=== PATIENT | male | born 1960 | race African-American/Black ===

== ENCOUNTER 2017-11-24 05:58 | Emergency (ER) | payer SELFPAY ==
[2017-11-24 07:08] LABS: Bicarbonate 24 mEq/L (21-31); Glucose Level 109 mg/dL (65-120); Potassium 3.4 mEq/L (3.6-5.0); Sodium Level 139 mEq/L (135-145)
[2017-11-24 07:14] LABS: ALT/SGPT 9 IU/L (10-60); AST/SGOT 19 IU/L (10-42); Albumin 3.7 g/dL (3.2-5.5); Alkaline Phosphatase 108 IU/L (42-121); BUN Blood Urea Nitrogen 6 mg/dL (6-20); Bilirubin Direct 0.1 mg/dL (0-0.2); Bilirubin Total 0.3 mg/dL (0.3-1.2); Protein, Total 7.3 g/dL (6.0-8.3)
[2017-11-24 07:31] LABS: Hematocrit 28.5 % (39.6-49.0); MCH 21.1 pg (27.0-35.0); MCV 70.4 fL (80-100); MPV 7.8 fL (7.6-11.3); RBC Red Blood Cell Count 4.04 M/uL (4.33-5.43)
[2017-11-24 07:41] LABS: Platelet Estimate ADEQ
[2017-11-24 07:42] LABS: Anisocytosis 2+; Blood Morphology Comment NOTED (NOT SEEN); Hypochromasia 1+; Ovalocytes SLIGHT; Platelets, Giant FEW
--- NOTE | 2017-11-24 08:03 | RAD REPORT ---
EXAM DESCRIPTION: CT - Abdomen Pelvis W Contrast - 11/24/2017 7:40 am CLINICAL HISTORY: Abdominal pain. Hematochezia COMPARISON: None. TECHNIQUE: Computed axial tomography of the abdomen and pelvis was obtained. 100 cc Isovue-300 is ad ministered intravenously. Oral contrast was given. All CT scans are performed using dose optimization technique as appropriate and may include automated exposure control or mA/KV adjustment according to patient size. FINDINGS: Liver contains many hypo lesions which vary in size from a few millimeters to 4.7 centimeters. The po rtal vein is patent. The liver is enlarged. Spleen, pancreas, adrenals and kidneys appear unremarkable. Small left renal cyst is present. Multiple gallstones are seen without gallbladder wall thickening. A 6 centimeter mass is present within the distal sigmoid colon. Surrounding lymphadenopathy is presen t. The appendix is normal caliber. IMPRESSION: A 6 centimeter mass within the distal sigmoid colon consistent with neoplasm. Adjacent l ymphadenopathy is present. Hepatic lesions likely indicate metastases
--- NOTE | 2017-11-24 09:21 | EDPHYS ---
Physician Documentation [facility] Name: Bob Armendariz Age: 57 yrs Sex: Male : 1960 Arrival Date: 11/24/2017 Time: 06:03 Bed 16 Private MD: ED Physician Roque Vigil HPI: 11/24 06:54 This 57 yrs old Black Male presents to ER via Ambulatory with complaints of Rectal jr8 Bleeding. 06:54 The patient presents to the emergency department with bleeding from the rectum/anus, jr8 that is mild. Onset: The symptoms/episode began/occurred acutely, 1 week(s) ago. Context: the patient has no known special context relating to the rectal area complaint(s). Modifying factors: The symptoms are alleviated by nothing, The symptoms are aggravated by nothing. Associate signs and symptoms: The patient has no apparent associated signs or symptoms. The patient has not experienced similar symptoms in the past. The patient has not recently seen a physician. Painless rectal bleeding seen in bowel movements per patient for one week. Denies any other s/s . Historical: - Allergies: 06:15 No Known Allergies; ao - Home Meds: 06:15 Lisinopril Oral [Active]; Metoprolol Tartrate Oral [Active]; Nifedipine Oral [Active]; ao - PMHx: 06:15 Hypertension; ao - PSHx: 06:15 None; ao - Immunization history:: Adult Immunizations unknown. - Social history:: Smoking status: Patient uses tobacco products, smokes one-half pack cigarettes per day, Patient uses alcohol, occasionally. Patient/guardian denies using street drugs. ROS: 06:54 Eyes: Negative for injury, pain, redness, and discharge, ENT: Negative for injury, jr8 pain, and discharge, Neck: Negative for injury, pain, and swelling, Cardiovascular: Negative for chest pain, palpitations, and edema, Respiratory: Negative for shortness of breath, cough, wheezing, and pleuritic chest pain, Back: Negative for injury and pain, MS/Extremity: Negative for injury and deformity, Skin: Negative for injury, rash, and discoloration, Neuro: Negative for headache, weakness, numbness, tingling, and seizure. 06:54 Abdomen/GI: Positive for rectal bleeding, Negative for abdominal pain, nausea, vomiting, and diarrhea, constipation, abdominal cramps, abdominal distension, anorexia, dysphagia, hematemesis, black/tarry stool, rectal pain, bowel incontinence, flatulence. Exam: 06:54 Eyes: Pupils equal round and reactive to light, extra-ocular motions intact. Lids and jr8 lashes normal. Conjunctiva and sclera are non-icteric and not injected. Cornea within normal limits. Periorbital areas with no swelling, redness, or edema. ENT: Nares patent. No nasal discharge, no septal abnormalities noted. Tympanic membranes are normal and external auditory canals are clear. Oropharynx with no redness, swelling, or masses, exudates, or evidence of obstruction, uvula midline. Mucous membranes moist. Neck: Trachea midline, no thyromegaly or masses palpated, and no cervical lymphadenopathy. Supple, full range of motion without nuchal rigidity, or vertebral point tenderness. No Meningismus. Cardiovascular: Regular rate and rhythm with a normal S1 and S2. No gallops, murmurs, or rubs. Normal PMI, no JVD. No pulse deficits. Respiratory: Lungs have equal breath sounds bilaterally, clear to auscultation and percussion. No rales, rhonchi or wheezes noted. No increased work of breathing, no retractions or nasal flaring. Back: No spinal tenderness. No costovertebral tenderness. Full range of motion. Skin: Warm, dry with normal turgor. Normal color with no rashes, no lesions, and no evidence of cellulitis. MS/ Extremity: Pulses equal, no cyanosis. Neurovascular intact. Full, normal range of motion. Neuro: Awake and alert, GCS 15, oriented to person, place, time, and situation. Cranial nerves II-XII grossly intact. Motor strength 5/5 in all extremities. Sensory grossly intact. Cerebellar exam normal. Normal gait. 06:54 Abdomen/GI: Inspection: abdomen appears normal, Bowel sounds: active, all quadrants, Palpation: abdomen is soft and non-tender, in all quadrants, mass, is not appreciated, rebound tenderness, is not appreciated, voluntary guarding, is elicited in all quadrants, involuntary guarding, is not appreciated, no appreciated organomegaly, Rectal exam: Prostate: normal, rectal tone normal, Stool: brown, guaiac positive, hemorrhoid(s), external, without bleeding, without inflammation, without thrombosis, without pain, mass, is not appreciated, swelling, is not appreciated, tenderness, is not appreciated, the exam is chaperoned by the nurse, Indicators: McBurney's point is not tender, Harrington's sign is negative, Rovsing's sign is negative, Liver: no appreciated palpable abnormalities, tenderness, is not appreciated. Vital Signs: 06:13 BP 121 / 91; Pulse 84; Resp 14; Temp 100.2(O); Pulse Ox 100% on R/A; Weight 84.82 kg ao (R); Height 6 ft. 1 in. (185.42 cm); Pain 0/10; 07:00 BP 120 / 89; Pulse 66; Resp 18; Pulse Ox 100% on R/A; hj 08:00 BP 124 / 90; Pulse 65; Resp 18; Pulse Ox 100% on R/A; hj 08:51 BP 125 / 87; Pulse 67; Resp 18; Pulse Ox 100% on R/A; hj 06:13 Body Mass Index 24.67 (84.82 kg, 185.42 cm) ao MDM: 06:11 Patient medically screened. jr8 08:23 ED course: Called Dr. Colin MARTINEZ and will not see patient because he is not civil transportation engineer today. jr8 Left message for Dr. Jared MARTINEZ to call back to see if he will see patient . 09:16 Data reviewed: vital signs, nurses notes, lab test result(s), radiologic studies, CT jr8 scan, and as a result, I will admit patient. Data interpreted: Pulse oximetry: on room air is 100 %. Interpretation: normal. Counseling: I had a detailed discussion with the patient and/or guardian regarding: the historical points, exam findings, and any diagnostic results supporting the discharge/admit diagnosis, lab results, radiology results, the need to transfer to another facility, for higher level of care, [facility] does not immediately have the required specialist. ED course: [facility] both GI and Medicine accepted patient for further evaluation of colon mass with anemia . 11/24 06:22 Order name: Basic Metabolic Panel; Complete Time: 07:24 jr8 11/24 06:22 Order name: CBC with Diff; Complete Time: 07:47 8 11/24 06:22 Order name: Creatinine for Radiology; Complete Time: 07:24 8 11/24 06:22 Order name: Hepatic Function; Complete Time: 07:24 jr8 11/24 07:33 Order name: Manual Differential; Complete Time: 07:47 EDMS 11/24 08:50 Order name: TS; Complete Time: 10:16 [facility] 11/24 06:22 Order name: IV Saline Lock; Complete Time: 06:35 [facility] 11/24 06:22 Order name: Labs collected and sent; Complete Time: 06:35 [facility] 11/24 07:25 Order name: CT Abd/Pelvis - W/Contrast; Complete Time: 08:06 [facility] 11/24 09:42 Order name: ABO/RH no charge; Complete Time: 09:44 EDMS Administered Medications: No medications were administered Point of Care Testing: Guaiac: 06:25 Stool Guaiac: Positive; Stool Hemoccult Control: Pass; ao Disposition: 14:27 Co-signature as Attending Physician, Roque Vigil MD I agree with the assessment and marlen plan of care. Disposition: 11/24/17 09:21 Transfer ordered to [facility]. Diagnosis are Malignant neoplasm of sigmoid colon, Gastrointestinal hemorrhage, unspecified - Lower GI, Acute Anemia . - Reason for transfer: Higher level of care. - Accepting physician is [facility]. - Condition is Stable. - Problem is new. - Symptoms are unchanged. Signatures: Dispatcher [employer] EDGeo Bonilla, Roque Ortiz RN, MD MD cha Roszak, Josh, PA PA jr8 Orville Castano RN RN ao
--- NOTE | 2017-11-24 09:21 | ER ---
Nurse's Notes [facility] Name: Bob Armendariz Age: 57 yrs Sex: Male : 1960 Arrival Date: 11/24/2017 Time: 06:03 Bed 16 Private MD: Diagnosis: Malignant neoplasm of sigmoid colon;Gastrointestinal hemorrhage, unspecified-Lower GI;Acute Anemia Presentation: 11/24 06:11 Presenting complaint: Patient states: "I have notice that there is blood in my stool ao and I don't like it." Patient reports bloody stool for a week. Patient denies nausea, vomiting and abdominal pain. Transition of care: patient was not received from another setting of care. Onset of symptoms is unknown. Initial Sepsis Screen: Does the patient meet any 2 criteria? No. Patient's initial sepsis screen is negative. Does the patient have a suspected source of infection? No. Patient's initial sepsis screen is negative. Care prior to arrival: None. 06:11 Method Of Arrival: Ambulatory ao 06:11 Acuity: SUSANNE 3 ao Triage Assessment: 06:16 General: Appears in no apparent distress. comfortable, Behavior is calm, cooperative, ao appropriate for age. Pain: Denies pain. EENT: No signs and/or symptoms were reported regarding the EENT system. Neuro: Level of Consciousness is awake, alert, obeys commands, Oriented to person, place, time, situation, Appropriate for age Moves all extremities. Speech is normal, Facial symmetry appears normal. Cardiovascular: Capillary refill < 3 seconds Patient's skin is warm and dry. Respiratory: Reports shortness of breath at rest Onset: The symptoms/episode began/occurred suddenly, the patient has moderate shortness of breath. GI: Abdomen is non-distended. GI: Reports bloody stool. : No signs and/or symptoms were reported regarding the genitourinary system. Derm: Skin is pink, warm \\T\\ dry. Skin temperature is warm. Musculoskeletal: No signs and/or symptoms reported regarding the musculoskeletal system. Range of motion: intact in all extremities. Historical: - Allergies: 06:15 No Known Allergies; ao - Home Meds: 06:15 Lisinopril Oral [Active]; Metoprolol Tartrate Oral [Active]; Nifedipine Oral [Active]; ao - PMHx: 06:15 Hypertension; ao - PSHx: 06:15 None; ao - Immunization history:: Adult Immunizations unknown. - Social history:: Smoking status: Patient uses tobacco products, smokes one-half pack cigarettes per day, Patient uses alcohol, occasionally. Patient/guardian denies using street drugs. Screenin:21 Abuse screen: Denies threats or abuse. Denies injuries from another. Nutritional ao screening: No deficits noted. Tuberculosis screening: No symptoms or risk factors identified. Fall Risk None identified. Assessment: 06:15 General: See triage assessment. ao 06:36 Cardiovascular: Rhythm is regular. Respiratory: Airway is patent Respiratory effort is ao Breath sounds are clear bilaterally. 07:30 General: Appears in no apparent distress. uncomfortable, Behavior is calm, cooperative, hj appropriate for age. Pain: Denies pain. Neuro: Level of Consciousness is awake, alert, obeys commands, Oriented to person, place, time, situation, Appropriate for age. Cardiovascular: Capillary refill < 3 seconds Patient's skin is warm and dry. Respiratory: Airway is patent Respiratory effort is even, unlabored, Respiratory pattern is regular, symmetrical. GI: Reports rectal bleeding. : No signs and/or symptoms were reported regarding the genitourinary system. EENT: No signs and/or symptoms were reported regarding the EENT system. Derm: No signs and/or symptoms reported regarding the dermatologic system. Musculoskeletal: No signs and/or symptoms reported regarding the musculoskeletal system. 08:47 Reassessment: Patient and/or family updated on plan of care and expected duration. Pain hj level reassessed. Patient is alert, oriented x 3, equal unlabored respirations, skin warm/dry/pink. provider in room for POC;. Vital Signs: 06:13 BP 121 / 91; Pulse 84; Resp 14; Temp 100.2(O); Pulse Ox 100% on R/A; Weight 84.82 kg ao (R); Height 6 ft. 1 in. (185.42 cm); Pain 0/10; 07:00 BP 120 / 89; Pulse 66; Resp 18; Pulse Ox 100% on R/A; hj 08:00 BP 124 / 90; Pulse 65; Resp 18; Pulse Ox 100% on R/A; hj 08:51 BP 125 / 87; Pulse 67; Resp 18; Pulse Ox 100% on R/A; hj 06:13 Body Mass Index 24.67 (84.82 kg, 185.42 cm) ao ED Course: 06:03 Patient arrived in ED. do 06:10 Orville Castano, RN is Primary Nurse. ao 06:11 Esvin Alvraez PA is PHCP. jr8 06:11 Roque Vigil MD is Attending Physician. jr8 06:13 Triage completed. ao 06:16 Arm band placed on right wrist. Patient placed in an exam room, on a stretcher, in a ao wheelchair, on pricing specialist, Patient notified of wait time. 06:22 Inserted saline lock: 20 gauge in right antecubital area, using aseptic technique. ao Blood collected. 06:36 Patient has correct armband on for positive identification. Pulse ox on. NIBP on. ao 07:07 Report given to GRIS Singer. ao 07:38 CT completed. Patient tolerated procedure well. Patient moved to CT via wheelchair. sj Patient moved back from CT. 07:41 CT Abd/Pelvis - W/Contrast In Process Unspecified. EDMS 08:57 \\[id number] initiated transfer with [facility] spoke with Alexia warehouse coordinator. eb 09:32 \\[id number] PENNY Alvarez spoke with Dr. Keysha Rodriguez about transfer. eb 09:34 \\[id number] administrative approval given by [facility] from Alexia Perdue Rn Trans eb Coord. pt to go to [address] RM [id number]/ report to be called to the transfer center to [phone]. 10:05 Primary Nurse role handed off by Orville Castano RN sg 10:05 Geo Meier, JENELLE is Primary Nurse. sg 10:40 No provider procedures requiring assistance completed. Patient transferred, IV remains sg in place. intact, No redness/swelling at site. Administered Medications: No medications were administered Point of Care Testing: Guaiac: 06:25 Stool Guaiac: Positive; Stool Hemoccult Control: Pass; ao Outcome: 09:21 ER care complete, transfer ordered by . jr8 10:40 Transferred by ground EMS to [facility], Transfer form completed. sg 10:40 Condition: good 10:40 Instructed on the need for transfer, safety practices, Demonstrated understanding of instructions. 10:41 Patient left the ED. sg Signatures: Dispatcher [employer] EDMS Geo Meier, RN Leola Mejía Josh, PA PA jr8 Harris oLcke RN RN hj Ortiz, Alex, RN RN ao Ogletree, Danielle do Botello, Elizabeth eb
[2017-11-24 10:57] VITALS: TEMP 100.2; O2SAT 100
[2017-11-24 11:00] VITALS: BP 125/87
== END 2017-11-24 10:41 | disposition short-term general hospital (02) ==
LOC: ER 05:58
DX: C18.7 Malignant neoplasm of sigmoid colon (principal); D64.9 Anemia, unspecified; K92.2 Gastrointestinal hemorrhage, unspecified; F17.210 Nicotine dependence, cigarettes, uncomplicated; I10 Essential (primary) hypertension
CPT/HCPCS: 36415; 74177; 80048; 80076; 85025; 86850; 86900; 86901; 99285; Q9967

== ENCOUNTER 2018-03-11 11:15 | Emergency (ER) | payer OTHER, SELFPAY ==
--- OUTSIDE RECORDS SUMMARY | 2018-03-11 11:17 | XMS REPORT | Clinical Summary ---
:1960 Author Organization [facility] Address [address] [place] [address] Phone Care Team Providers Name Role Phone Unavailable Primary Care Provider Unavailable Allergies No Known Allergies Current Medications Prescription Sig. Disp. Refills Start Date End Date Status metoprolol Take 25 mg by Active (LOPRESSOR) 25 MG mouth 2 (two) tablet times daily. ferrous sulfate 325 Take 325 mg Active (65 FE) MG tablet by mouth daily with breakfast. lisinopril Take 20 mg by 11/30/2017 Discontinued (PRINIVIL,ZESTRIL) 20 mouth daily. MG tablet NIFEdipine Take 20 mg by 11/30/2017 Discontinued (PROCARDIA) 20 MG mouth 3 capsule (three) times daily. polyethylene glycol Take 17 g by 14 each 0 11/30/2017 11/30/2017 Discontinued (GLYCOLAX) 17 gram mouth 2 (two) packet times daily for 3 days. polyethylene glycol Take 17 g by 60 each 5 11/30/2017 12/30/2017 (GLYCOLAX) 17 gram mouth 2 (two) packet times daily for 30 days. Active Problems Problem Noted Date Adenocarcinoma, colon (HCC) 11/27/2017 Blood loss anemia 11/27/2017 Liver metastases (HCC) 11/27/2017 Microcytic anemia 11/24/2017 Liver lesion 11/24/2017 Hypertension, essential 11/24/2017 Diabetes mellitus type 2, diet-controlled (HCC) 11/24/2017 Tobacco abuse 11/24/2017 Resolved Problems Problem Noted Date Resolved Date Colonic mass 11/24/2017 11/27/2017 Encounters Date Type Specialty Care Team Description 11/29/2017 Procedure Pass Gastroenterology 11/29/2017 Surgery Gastroenterology Paul Parsons SIGMOIDOSCOPY Loco 11/28/2017 Anesthesia Event Gastroenterology Mile Walsh MD 11/28/2017 Procedure Pass Gastroenterology 11/27/2017 Anesthesia Event Gastroenterology Pedro Field MD 11/25/2017 Anesthesia Event Gastroenterology Bj Hackett CRNA 11/25/2017 Procedure Pass Gastroenterology 11/25/2017 Surgery Gastroenterology Prieto Dela Cruz COLONOSCOPY,BIOPSY MD Essence 11/24/2017 - Hospital Encounter Cardiology Shiekh [facility], Colonic mass; Diabetes 11/30/2017 Rhoda Marie MD mellitus type 2, Chacho Hairston, diet-controlled MD (HCC);Hypertension, Payton, Zo essential;Liver MD Silverio lesion;Microcytic anemia;Tobacco abuse;Adenocarcinoma, colon (HCC);Blood loss anemia;Liver metastases (HCC) after 03/10/2017 Social History Tobacco Use Types Packs/Day Years Used Date Current Some Day Smoker 0.25 40 Smokeless Tobacco: Never Used Alcohol Use Drinks/Week oz/Week Comments Yes Occasionally Sex Assigned at Date Recorded Not on file Last Filed Vital Signs Vital Sign Reading Time Taken Blood Pressure 114/78 11/30/2017 11:25 AM CDT Pulse 69 11/30/2017 11:25 AM CDT Temperature 36.8 C (98.3 F) 11/30/2017 11:25 AM CDT Respiratory Rate 15 11/30/2017 11:25 AM CDT Oxygen Saturation 98% 11/30/2017 11:25 AM CDT Inhaled Oxygen Concentration - - Weight 83.3 kg (183 lb 9.6 oz) 11/24/2017 12:12 PM CDT Height 185.4 cm (6' 1") 11/24/2017 12:12 PM CDT Body Mass Index 24.22 11/24/2017 12:12 PM CDT Plan of Treatment Not on file Implants Implanted Type Area Can Vacuum Tester Device Expiration Model / Identifier Date Serial / Lot Stent Colonic [id number] - [id number] Stents-Pe [employer] 2018 6504 / Implanted: Qty: 1 on 11/29/2017 by Paul Parsons / [id number] Stent Colonic [id number] - [id number] Stents[employer]Pe [employer] 2018 6506 / Implanted: Qty: 1 on 11/29/2017 by Issa Paul Loco case / [id number] Procedures Procedure Name Priority Date/Time Associated Diagnosis Comments PROCEDURE W/ C-ARM 11/29/2017 1:00 PM Colonic obstruction (HCC) CDT SIGMOIDOSCOPY 11/29/2017 1:00 PM Colonic obstruction (HCC) CDT COLONOSCOPY,SUBMUCOSAL 11/25/2017 9:46 AM Gastrointestinal INJECTION CDT hemorrhage, unspecified gastrointestinal hemorrhage type COLONOSCOPY,BIOPSY 11/25/2017 9:46 AM Gastrointestinal CDT hemorrhage, unspecified gastrointestinal hemorrhage type after 03/10/2017 Results RHYTHM STRIP - SCAN (12/04/2017 1:21 PM)REPORT OF PROCEDURE - ENDOSCOPY URL ( 7:38 AM)Only the most recent of2 resultswithin the time period is included.Hemoglobin and hematocrit (11/30/2017 4:54 AM)Only the most recent of3 resultswithin the time period is included. Component Value Ref Range Hemoglobin 8.5 (L) 13.7 - 17.5 GM/DL Hematocrit 28.9 (L) 40.1 - 51.0 % Specimen Performing Laboratory Blood [address] [address] Carcinoembryonic Antigen (CEA) (11/30/2017 4:54 AM) Component Value Ref Range CEA, SERUM 109.0 (H) 0.0 - 5.0 ng/mL Specimen Performing Laboratory Blood [address] [address] [address] radio technician in or 30 minute increments (11/29/2017 5:00 PM) Specimen Performing Laboratory GE RIS Narrative FINAL REPORT Fluoroscopy 1 view intraoperative 11/29/2017 5:32 PM CLINICAL HISTORY: Instrument localization COMPARISON: None available IMPRESSION: Please correlate imaging report findings with the procedure note prepared by Dr. Parsons, as an intra-procedure imaging consultation was not requested. Reported fluoroscopy time: 2.8 minutes. Signed: Kong Looney MD Report Verified Date/Time:11/29/2017 17:32:48 Reading Location: [facility] Radiology Reading Room Procedure Note Interface, External Ris In - 11/29/2017 5:35 PM CDT FINAL REPORT Fluoroscopy 1 view intraoperative 11/29/2017 5:32 PM CLINICAL HISTORY: Instrument localization COMPARISON: None available IMPRESSION: Please correlate imaging report findings with the procedure note prepared by Dr. Parsons, as an intra-procedure imaging consultation was not requested. Reported fluoroscopy time: 2.8 minutes. Signed: Kong Looney MD Report Verified Date/Time: 11/29/2017 17:32:48 Reading Location: [facility] Radiology Reading Room SFUSION SERVICE REPORT - SCAN (11/27/2017 5:40 PM)CBC (Hemogram only) ( 5:05 AM)Only the most recent of3 resultswithin the time period is included. Component Value Ref Range WBC 5.3 3.5 - 10.5 K/L RBC 3.70 (L) 4.63 - 6.08 M/L Hemoglobin 7.5 (L) 13.7 - 17.5 GM/DL Hematocrit 26.4 (L) 40.1 - 51.0 % MCV 71.4 (L) 79.0 - 92.2 fL MCH 20.3 (L) 25.7 - 32.2 pg MCHC 28.4 (L) 32.3 - 36.5 GM/DL RDW 21.2 (H) 11.6 - 14.4 % Platelets 181 150 - 450 K/CU MM MPV 10.4 9.4 - 12.4 fL nRBC 0 0 - 0 /100 WBC Specimen Performing Laboratory Blood [facility] [address] [address] Basic metabolic panel (11/27/2017 5:05 AM)Only the most recent of3 resultswithin the time period is included. Component Value Ref Range Sodium 137 136 - 145 meq/L Potassium 3.7 3.5 - 5.1 meq/L Chloride 105 98 - 107 meq/L CO2 24 22 - 29 meq/L BUN 5 (L) 7 - 21 mg/dL Creatinine 0.66 0.57 - 1.25 mg/dL Glucose 79 70 - 105 mg/dL Calcium 9.1 8.4 - 10.2 mg/dL EGFR 150Comment: ESTIMATED GFR IS NOT ACCURATE mL/min/1.73 sq m CREATININE CLEARANCE IN PREDICTING GLOMERULAR FILTRATION RATE. ESTIMATED GFR IS NOT APPLICABLE FOR DIALYSIS PATIENTS. Specimen Performing Laboratory Blood [facility] [address] [address] [address] chest with IV contrast (11/26/2017 4:47 PM) Specimen Performing Laboratory [place] KARLI Coreas FINAL REPORT CT of the Chest, abdomen and pelvis dated 11/26/2017 Clinical information: Liver protocol, staging CT for CRC evaluate for metastatic disease Comment:Axial images of the chest, abdomen, and pelvis were obtained from thoracic inlet to the pubic symphysis with intravenous contrast. Preintravenous axial images of the abdomen were obtained. This exam was performed according to our departmental dose-optimization program, which includes automated exposure control, adjustment of the mA and/or kV according to patient size and/or use of interactive reconstruction technique. A 1.3 x 1.7 cm enhancing nodule is seen in this method. Heart is normal in size.Great vessels are unremarkable. No adenopathy in the mediastinum or perihilar region. Trachea and mainstem bronchi are patent. A 3 mm nodule is seen in the right upper lobe. A 5 mm nodule is seen in the right mid lobe but. The rest of the lungs are clear. No mass lesion or airspace disease is noted.No interstitial disease or bronchiectasis is present. No pleural effusion or pleural based mass is seen. Liver and spleen are normal in size. Numerous hypodense masses are seen throughout the liver with largest measuring approximately 3.8 x 4.6 cm. Gallbladder is contracted. Multiple small gallstones are present. No biliary dilatation is noted. Pancreas and adrenals are unremarkable. Both kidneys are normal in size and functioning with bilateral excretion. A 1.3 x 1.5 cm cyst is seen in the inferior pole left kidney. The opacified small and large bowel are suboptimally evaluated secondary to lack of GI contrast. Wall thickening is seen in the sigmoid colon. Wall thickening measures approximately 7 cm in length with acute transition. The findings are suspicious for colon cancer. Small bowel is normal in caliber. Appendix is unremarkable. Prominent lymph nodes are seen in the sigmoid mesocolon measuring up to 0.9 x 1.3 cm. Prostate is normal in size. The urinary bladder is minimally distended. Impression: 1. Nonspecific small nodules in the right upper and mid lobe. 2. Numerous hypodense masses in the liver compatible with metastasis. 3. Wall thickening in the sigmoid colon compatible with colon cancer. 4. Cholelithiasis without biliary dilatation. 5. Left renal cyst. 6. Nonspecific lymph nodes in the sigmoid mesocolon. Signed: Brea Pimentel MD Report Verified Date/Time:11/26/2017 17:19:39 Reading Location: [address] Ortho Consult Reading Room Procedure Note Interface, External Ris In - 11/26/2017 5:21 PM CDT FINAL REPORT CT of the Chest, abdomen and pelvis dated 11/26/2017 Clinical information: Liver protocol, staging CT for CRC evaluate for metastatic disease Comment: Axial images of the chest, abdomen, and pelvis were obtained from thoracic inlet to the pubic symphysis with intravenous contrast. Preintravenous axial images of the abdomen were obtained. This exam was performed according to our departmental dose-optimization program, which includes automated exposure control, adjustment of the mA and/or kV according to patient size and/or use of interactive reconstruction technique. A 1.3 x 1.7 cm enhancing nodule is seen in this method. Heart is normal in size. Great vessels are unremarkable. No adenopathy in the mediastinum or perihilar region. Trachea and mainstem bronchi are patent. A 3 mm nodule is seen in the right upper lobe. A 5 mm nodule is seen in the right mid lobe but. The rest of the lungs are clear. No mass lesion or airspace disease is noted. No interstitial disease or bronchiectasis is present. No pleural effusion or pleural based mass is seen. Liver and spleen are normal in size. Numerous hypodense masses are seen throughout the liver with largest measuring approximately 3.8 x 4.6 cm. Gallbladder is contracted. Multiple small gallstones are present. No biliary dilatation is noted. Pancreas and adrenals are unremarkable. Both kidneys are normal in size and functioning with bilateral excretion. A 1.3 x 1.5 cm cyst is seen in the inferior pole left kidney. The opacified small and large bowel are suboptimally evaluated secondary to lack of GI contrast. Wall thickening is seen in the sigmoid colon. Wall thickening measures approximately 7 cm in length with acute transition. The findings are suspicious for colon cancer. Small bowel is normal in caliber. Appendix is unremarkable. Prominent lymph nodes are seen in the sigmoid mesocolon measuring up to 0.9 x 1.3 cm. Prostate is normal in size. The urinary bladder is minimally distended. Impression: 1. Nonspecific small nodules in the right upper and mid lobe. 2. Numerous hypodense masses in the liver compatible with metastasis. 3. Wall thickening in the sigmoid colon compatible with colon cancer. 4. Cholelithiasis without biliary dilatation. 5. Left renal cyst. 6. Nonspecific lymph nodes in the sigmoid mesocolon. Signed: Brea Pimentel MD Report Verified Date/Time: 11/26/2017 17:19:39 Reading Location: [id number] Ortho Consult Reading Room abdomen/pelvis without & with IV contrast (11/26/2017 4:47 PM) Specimen Performing Laboratory [employer] FINAL REPORT CT of the Chest, abdomen and pelvis dated 11/26/2017 Clinical information: Liver protocol, staging CT for CRC evaluate for metastatic disease Comment:Axial images of the chest, abdomen, and pelvis were obtained from thoracic inlet to the pubic symphysis with intravenous contrast. Preintravenous axial images of the abdomen were obtained. This exam was performed according to our departmental dose-optimization program, which includes automated exposure control, adjustment of the mA and/or kV according to patient size and/or use of interactive reconstruction technique. A 1.3 x 1.7 cm enhancing nodule is seen in this method. Heart is normal in size.Great vessels are unremarkable. No adenopathy in the mediastinum or perihilar region. Trachea and mainstem bronchi are patent. A 3 mm nodule is seen in the right upper lobe. A 5 mm nodule is seen in the right mid lobe but. The rest of the lungs are clear. No mass lesion or airspace disease is noted.No interstitial disease or bronchiectasis is present. No pleural effusion or pleural based mass is seen. Liver and spleen are normal in size. Numerous hypodense masses are seen throughout the liver with largest measuring approximately 3.8 x 4.6 cm. Gallbladder is contracted. Multiple small gallstones are present. No biliary dilatation is noted. Pancreas and adrenals are unremarkable. Both kidneys are normal in size and functioning with bilateral excretion. A 1.3 x 1.5 cm cyst is seen in the inferior pole left kidney. The opacified small and large bowel are suboptimally evaluated secondary to lack of GI contrast. Wall thickening is seen in the sigmoid colon. Wall thickening measures approximately 7 cm in length with acute transition. The findings are suspicious for colon cancer. Small bowel is normal in caliber. Appendix is unremarkable. Prominent lymph nodes are seen in the sigmoid mesocolon measuring up to 0.9 x 1.3 cm. Prostate is normal in size. The urinary bladder is minimally distended. Impression: 1. Nonspecific small nodules in the right upper and mid lobe. 2. Numerous hypodense masses in the liver compatible with metastasis. 3. Wall thickening in the sigmoid colon compatible with colon cancer. 4. Cholelithiasis without biliary dilatation. 5. Left renal cyst. 6. Nonspecific lymph nodes in the sigmoid mesocolon. Signed: Brea Pimentel MD Report Verified Date/Time:11/26/2017 17:19:39 Reading Location: [id number] Ortho Consult Reading Room Procedure Note Interface, External Ris In - 11/26/2017 5:21 PM CDT FINAL REPORT CT of the Chest, abdomen and pelvis dated 11/26/2017 Clinical information: Liver protocol, staging CT for CRC evaluate for metastatic disease Comment: Axial images of the chest, abdomen, and pelvis were obtained from thoracic inlet to the pubic symphysis with intravenous contrast. Preintravenous axial images of the abdomen were obtained. This exam was performed according to our departmental dose-optimization program, which includes automated exposure control, adjustment of the mA and/or kV according to patient size and/or use of interactive reconstruction technique. A 1.3 x 1.7 cm enhancing nodule is seen in this method. Heart is normal in size. Great vessels are unremarkable. No adenopathy in the mediastinum or perihilar region. Trachea and mainstem bronchi are patent. A 3 mm nodule is seen in the right upper lobe. A 5 mm nodule is seen in the right mid lobe but. The rest of the lungs are clear. No mass lesion or airspace disease is noted. No interstitial disease or bronchiectasis is present. No pleural effusion or pleural based mass is seen. Liver and spleen are normal in size. Numerous hypodense masses are seen throughout the liver with largest measuring approximately 3.8 x 4.6 cm. Gallbladder is contracted. Multiple small gallstones are present. No biliary dilatation is noted. Pancreas and adrenals are unremarkable. Both kidneys are normal in size and functioning with bilateral excretion. A 1.3 x 1.5 cm cyst is seen in the inferior pole left kidney. The opacified small and large bowel are suboptimally evaluated secondary to lack of GI contrast. Wall thickening is seen in the sigmoid colon. Wall thickening measures approximately 7 cm in length with acute transition. The findings are suspicious for colon cancer. Small bowel is normal in caliber. Appendix is unremarkable. Prominent lymph nodes are seen in the sigmoid mesocolon measuring up to 0.9 x 1.3 cm. Prostate is normal in size. The urinary bladder is minimally distended. Impression: 1. Nonspecific small nodules in the right upper and mid lobe. 2. Numerous hypodense masses in the liver compatible with metastasis. 3. Wall thickening in the sigmoid colon compatible with colon cancer. 4. Cholelithiasis without biliary dilatation. 5. Left renal cyst. 6. Nonspecific lymph nodes in the sigmoid mesocolon. Signed: Brea Pimentel MD Report Verified Date/Time: 11/26/2017 17:19:39 Reading Location: [facility] B[facility] C013X Ortho Consult Reading Room Type and screen, automated (11/26/2017 4:26 AM) Component Value Ref Range ABO/RH AUTOMATED (BEAKER) A POSITIVE Ab Scrn NEGATIVE Specimen Performing Laboratory Blood - Arm, [address] [address] Tissue Exam (11/25/2017 10:25 AM) Component Value Ref Range Case Report Surgical Pathology Report Case: [id number] Authorizing Provider:Prieto Dela Cruz, Collected: 11/25/2017 1025 MD Ordering Location: [address] Received: 11/27/2017 0802 Service Pathologist: Nancy Morrison MD Specimen:Polyp, Colon - Sigmoid, sigmoid mass r/o adenocarcinoma bx DIAGNOSIS COLON, SIGMOID, ENDOSCOPIC BIOPSY: - ADENOCARCINOMA Signing Pathologist Direct Phone Line: [phone] CPT Code(s) 24706 CLINICAL HISTORY GI bleed, rule out adenocarcinoma biopsy SPECIMEN SOURCE Sigmoid colon polyp mass GROSS DESCRIPTION The specimen is received in a formalin-filled container labeled with the patient's information and labeled "sigmoid colon polyp mass" and consists of multiple fragments of dai tissue ranging from less than 0.1 to 0.3 submitted entirely in A1. CG/ew MICROSCOPIC DESCRIPTION PERFORMED Specimen Performing Laboratory Tissue - Polyp, Colon - Sigmoid [address] [address] Iron, TIBC, % sat. (without ferritin) (11/25/2017 4:43 AM) Component Value Ref Range Iron 17 (L) 40 - 160 ug/dL TIBC 405 250 - 450 ug/dL Iron % Saturation 4 (L) 20 - 55 % Specimen Performing Laboratory Blood - Arm, [address] [address] Hemoglobin A1c (11/25/2017 4:43 AM) Component Value Ref Range Hemoglobin A1C 5.9 4.3 - 6.1 % Specimen Performing Laboratory Blood - Arm, [address] [address] Ferritin (11/25/2017 4:43 AM) Component Value Ref Range Ferritin 12 5 - 275 ng/mL Specimen Performing Laboratory Blood - Arm, [address] [address] Hepatic function panel (11/25/2017 4:43 AM) Component Value Ref Range Protein, Total 6.9 6.0 - 8.3 gm/dL Albumin 3.5 3.5 - 5.0 g/dL Total Bilirubin 0.7 0.2 - 1.2 mg/dL Bilirubin, Direct 0.3 0.1 - 0.5 mg/dL Alkaline Phosphatase 105 40 - 150 U/L AST 14 5 - 34 U/L ALT <6 (L) 6 - 55 U/L Specimen Performing Laboratory Blood - Arm, [address] [address] after 03/10/2017
--- OUTSIDE RECORDS SUMMARY | 2018-03-11 11:18 | XMS REPORT ---
:1960 [facility] Address [address] [place] [address] Dr. Jones [address] [place] [id number] Care Team Providers Name Role Phone MIMI LEMUSAmy Unavailable Unavailable Problems This patient has no known problems. Allergies, Adverse Reactions, Alerts This patient has no known allergies or adverse reactions. Medications This patient has no known medications. Results Test Description Test Time Test Comments Text Results Atomic Results Result Comments CARCINOEMBRYONIC ANTIGEN (CEA) 2017-11-30 06:34:00 Test Item Value Reference Range Comments CARCINOEMBRYONIC ANTIGEN (BEAKER) (test nrpg=652) 109.0 ng/mL 0.0-5.0 HEMOGLOBIN AND [id number] 05:52:00 Test Item Value Reference Range Comments HEMOGLOBIN (BEAKER) (test enil=233) 8.5 GM/DL 13.7-17.5 HEMATOCRIT (BEAKER) (test yrlo=651) 28.9 % 40.1-51.0 FL, STATOR CONNECTOR IN OR/30 MINUTE [id number] 17:32:00Intra- Op imagingReason for exam:->sigmoid massFINAL REPORT Fluoroscopy 1 view intraoperative 11/29/2017 5:32 PM CLINICAL HISTORY: Instrument localization COMPARISON: None available IMPRESSION: Please correlate imaging report findings with the procedure note prepared by Dr. Parsons, as an intra- procedure imaging consultation wasnot requested. Reported fluoroscopy time: 2.8 minutes. Signed: Kong Looney Verified Date/Time: 11/29/2017 17:32: 48 [facility] Electronicallysigned by: KONG LOONEY M.D. on 11/29/2017 05:32 PMHEMOGLOBIN AND [id number] 05:39:00 Test Item Value Reference Range Comments HEMOGLOBIN (BEAKER) (test fbpi=422) 8.2 GM/DL 13.7-17.5 HEMATOCRIT (BEAKER) (test oylb=063) 28.1 % 40.1-51.0 HEMOGLOBIN AND [id number] 13:06:00 Test Item Value Reference Range Comments HEMOGLOBIN (BEAKER) (test qupx=292) 8.2 GM/DL 13.7-17.5 HEMATOCRIT (BEAKER) (test wwut=514) 28.9 % 40.1-51.0 TISSUE [id number] 16:15:00Surgical Pathology Report Case: [id number] Authorizing Provider: Prieto Dela Cruz, Collected: 11/25/2017 1025 MD OrderingLocation: [address] Received: 2017 0802 Service Pathologist: Nancy Morrison MD Specimen: Polyp , Colon - Sigmoid, sigmoid mass r/o adenocarcinoma bx COLON, SIGMOID, ENDOSCOPIC BIOPSY: - ADENOCARCINOMA Signing Pathologist Direct Phone Line: [phone] signed by Nancy Morrison MD on 11/27/2017 at 4:15 [id number] bleed, rule out adenocarcinomabiopsy Sigmoid colon polyp mass The specimen is received in a formalin-filled container labeled withthe patient's information and labeled "sigmoid colon polyp mass" and consists of multiple fragments of dai tissue ranging from less than 0.1 to 0.3 submitted entirely in A1. CG/ew PERFORMEDBASIC METABOLIC [id number] 05:43:00 Test Item Value Reference Range Comments SODIUM (BEAKER) (test 137 meq/L 136-145 jres=705) POTASSIUM (BEAKER) (test 3.7 meq/L 3.5-5.1 vtze=999) CHLORIDE (BEAKER) (test 105 meq/L 98-107 lhfg=212) CO2 (BEAKER) (test 24 meq/L 22-29 zfry=147) BLOOD UREA NITROGEN 5 mg/dL 7-21 (BEAKER) (test vkmi=294) CREATININE (BEAKER) (test 0.66 mg/dL 0.57-1.25 roht=188) GLUCOSE RANDOM (BEAKER) 79 mg/dL 70-105 (test uyzj=253) CALCIUM (BEAKER) (test 9.1 mg/dL 8.4-10.2 lipb=442) EGFR (BEAKER) (test 150 mL/min/1.73 sq m ESTIMATED GFR IS NOT sgot=4006) ACCURATE CREATININE CLEARANCE IN PREDICTING GLOMERULAR FILTRATION RATE. ESTIMATED GFR IS NOT APPLICABLE FOR DIALYSIS PATIENTS. CBC (HEMOGRAM ONLY)2017-11-27 05:34:00 Test Item Value Reference Range Comments WHITE BLOOD CELL COUNT (BEAKER) (test bsdx=574) 5.3 K/ L 3.5-10.5 RED BLOOD CELL COUNT (BEAKER) (test vaib=489) 3.70 M/ L 4.63-6.08 HEMOGLOBIN (BEAKER) (test fsua=983) 7.5 GM/DL 13.7-17.5 HEMATOCRIT (BEAKER) (test ghsx=052) 26.4 % 40.1-51.0 MEAN CORPUSCULAR VOLUME (BEAKER) (test ohhr=610) 71.4 fL 79.0-92.2 MEAN CORPUSCULAR HEMOGLOBIN (BEAKER) (test 20.3 pg 25.7-32.2 doyl=987) MEAN CORPUSCULAR HEMOGLOBIN CONC (BEAKER) (test 28.4 GM/DL 32.3-36.5 geye=721) RED CELL DISTRIBUTION WIDTH (BEAKER) (test 21.2 % 11.6-14.4 vfxn=516) PLATELET COUNT (BEAKER) (test mosz=801) 181 K/CU MM 150-450 MEAN PLATELET VOLUME (BEAKER) (test odzu=625) 10.4 fL 9.4-12.4 NUCLEATED RED BLOOD CELLS (BEAKER) (test 0 /100 WBC 0-0 afft=189) CT, CHEST, WITH [id number] 17:19:00FINAL REPORT CT of the Chest, abdomen and [...] is contracted. Multiple small gallstones are present. Nobiliary dilatation is noted. Pancreas and adrenals are unremarkable. Both kidneys are normal in sizeand functioning with bilateral excretion. A 1.3 x [...] colon cancer. Small bowel is normal in caliber.Appendix is unremarkable. Prominent lymph nodes are seen in the sigmoid mesocolon measuring up to 0.9 x 1.3 cm. Prostate is normal in size. The urinary bladder is minimally distended. Impression: 1. Nonspecific small nodules in the right upper and mid lobe.2. Numerous hypodense masses in the liver compatible with metastasis.3. Wall thickening in the sigmoid colon compatible with colon cancer.4. Cholelithiasis without biliary dilatation.5. Left renal cyst.6. Nonspecific lymph nodes in the sigmoid mesocolon. Signed: Brea Pimentel MDReport Verified Date/Time: 11/26/2017 17:19:39 Reading Location: [address] Consult Reading Room Electronically signed by: BREA PIMENTEL M.D. on 2017 05:19 [facility], [id number] 17:19:00FINAL REPORT CT of the Chest, abdomen and [...] is contracted. Multiple small gallstones are present. Nobiliary dilatation is noted. Pancreas and adrenals are unremarkable. Both kidneys are normal in sizeand functioning with bilateral excretion. A 1.3 x [...] colon cancer. Small bowel is normal in caliber.Appendix is unremarkable. Prominent lymph nodes are seen in the sigmoid mesocolon measuring up to 0.9 x 1.3 cm. Prostate is normal in size. The urinary bladder is minimally distended. Impression: 1. Nonspecific small nodules in the right upper and mid lobe.2. Numerous hypodense masses in the liver compatible with metastasis.3. Wall thickening in the sigmoid colon compatible with colon cancer.4. Cholelithiasis without biliary dilatation.5. Left renal cyst.6. Nonspecific lymph nodes in the sigmoid mesocolon. Signed: Brea Pimentelort Verified Date/Time: 11/26/2017 17:19:39 Reading Location: [address] Reading Room Electronically signed by: BREA PIMENTEL M.D. on 2017 05:19 [facility] METABOL[facility] [id number] 05:29:00 Test Item Value Reference Range Comments SODIUM (BEAKER) (test 137 meq/L 136-145 xrce=189) POTASSIUM (BEAKER) (test 3.6 meq/L 3.5-5.1 hgkn=798) CHLORIDE (BEAKER) (test 105 meq/L 98-107 ksie=262) CO2 (BEAKER) (test 24 meq/L 22-29 xlqo=655) BLOOD UREA NITROGEN 8 mg/dL 7-21 (BEAKER) (test sisf=255) CREATININE (BEAKER) (test 0.67 mg/dL 0.57-1.25 bfvg=696) GLUCOSE RANDOM (BEAKER) 80 mg/dL 70-105 (test prfz=027) CALCIUM (BEAKER) (test 9.1 mg/dL 8.4-10.2 hqvg=795) EGFR (BEAKER) (test 148 mL/min/1.73 sq m ESTIMATED GFR IS NOT eber=1311) ACCURATE CREATININE CLEARANCE IN PREDICTING GLOMERULAR FILTRATION RATE. ESTIMATED GFR IS NOT APPLICABLE FOR DIALYSIS PATIENTS. CBC (HEMOGRAM ONLY)2017-11-26 04:52:00 Test Item Value Reference Range Comments WHITE BLOOD CELL COUNT (BEAKER) (test mpps=985) 5.0 K/ L 3.5-10.5 RED BLOOD CELL COUNT (BEAKER) (test umro=264) 3.59 M/ L 4.63-6.08 HEMOGLOBIN (BEAKER) (test jhza=796) 7.5 GM/DL 13.7-17.5 HEMATOCRIT (BEAKER) (test mhgm=434) 25.8 % 40.1-51.0 MEAN CORPUSCULAR VOLUME (BEAKER) (test jqdl=126) 71.9 fL 79.0-92.2 MEAN CORPUSCULAR HEMOGLOBIN (BEAKER) (test 20.9 pg 25.7-32.2 uvin=234) MEAN CORPUSCULAR HEMOGLOBIN CONC (BEAKER) (test 29.1 GM/DL 32.3-36.5 okdz=320) RED CELL DISTRIBUTION WIDTH (BEAKER) (test 21.1 % 11.6-14.4 hubp=882) PLATELET COUNT (BEAKER) (test fqol=572) 188 K/CU MM 150-450 MEAN PLATELET VOLUME (BEAKER) (test kmsg=106) 9.6 fL 9.4-12.4 NUCLEATED RED BLOOD CELLS (BEAKER) (test 0 /100 WBC 0-0 jjjx=157) HEMOGLOBIN [id number] 08:04:00 Test Item Value Reference Range Comments HEMOGLOBIN A1C (BEAKER) (test zsrt=381) 5.9 % 4.3-6.1 [id number] 06:14:00 Test Item Value Reference Range Comments FERRITIN (BEAKER) (test smcl=785) 12 ng/mL 5-275 HEPATIC FUNCTION [id number] 05:55:00 Test Item Value Reference Range Comments TOTAL PROTEIN (BEAKER) (test yqxj=844) 6.9 gm/dL 6.0-8.3 ALBUMIN (BEAKER) (test bnmf=5715) 3.5 g/dL 3.5-5.0 BILIRUBIN TOTAL (BEAKER) (test ricn=663) 0.7 mg/dL 0.2-1.2 BILIRUBIN DIRECT (BEAKER) (test dizp=280) 0.3 mg/dL 0.1-0.5 ALKALINE PHOSPHATASE (BEAKER) (test pfqz=142) 105 U/L 40-150 AST (SGOT) (BEAKER) (test ojzy=245) 14 U/L 5-34 ALT (SGPT) (BEAKER) (test evtl=910) < U/L 6-55 IRON, TIBC, % SAT. (WITHOUT FERRITIN)2017-11-25 05:54:00 Test Item Value Reference Range Comments IRON (BEAKER) (test culd=166) 17 ug/dL 40-160 TOTAL IRON BINDING CAPACITY (BEAKER) (test 405 ug/dL 250-450 qxor=531) IRON % SATURATION (2) (BEAKER) (test pyum=7528) 4 % 20-55 BASIC METABOLIC [id number] 05:53:00 Test Item Value Reference Range Comments SODIUM (BEAKER) (test 139 meq/L 136-145 cujz=662) POTASSIUM (BEAKER) (test 3.3 meq/L 3.5-5.1 yicu=089) CHLORIDE (BEAKER) (test 105 meq/L 98-107 tzrc=621) CO2 (BEAKER) (test 26 meq/L 22-29 umfj=042) BLOOD UREA NITROGEN 10 mg/dL 7-21 (BEAKER) (test cnqg=735) CREATININE (BEAKER) (test 0.64 mg/dL 0.57-1.25 yudm=404) GLUCOSE RANDOM (BEAKER) 78 mg/dL 70-105 (test xnud=804) CALCIUM (BEAKER) (test 9.0 mg/dL 8.4-10.2 clys=293) EGFR (BEAKER) (test 156 mL/min/1.73 sq m ESTIMATED GFR IS NOT inbp=3411) ACCURATE CREATININE CLEARANCE IN PREDICTING GLOMERULAR FILTRATION RATE. ESTIMATED GFR IS NOT APPLICABLE FOR DIALYSIS PATIENTS. CBC (HEMOGRAM ONLY)2017-11-25 05:50:00 Test Item Value Reference Range Comments WHITE BLOOD CELL COUNT (BEAKER) (test miky=840) 5.9 K/ L 3.5-10.5 RED BLOOD CELL COUNT (BEAKER) (test galf=836) 3.70 M/ L 4.63-6.08 HEMOGLOBIN (BEAKER) (test wbem=043) 7.7 GM/DL 13.7-17.5 HEMATOCRIT (BEAKER) (test rsag=063) 26.1 % 40.1-51.0 MEAN CORPUSCULAR VOLUME (BEAKER) (test zvjl=761) 70.5 fL 79.0-92.2 MEAN CORPUSCULAR HEMOGLOBIN (BEAKER) (test 20.8 pg 25.7-32.2 ebhe=239) MEAN CORPUSCULAR HEMOGLOBIN CONC (BEAKER) (test 29.5 GM/DL 32.3-36.5 durn=825) RED CELL DISTRIBUTION WIDTH (BEAKER) (test 21.4 % 11.6-14.4 jrdr=533) PLATELET COUNT (BEAKER) (test rgeg=983) 220 K/CU MM 150-450 MEAN PLATELET VOLUME (BEAKER) (test njkd=334) 9.7 fL 9.4-12.4 NUCLEATED RED BLOOD CELLS (BEAKER) (test 0 /100 WBC 0-0 myvu=256)
[2018-03-11 13:28] LABS: Absolute Lymphocytes (CBC) 1.7 K/uL (0.7-4.9); Absolute Monocytes 0.7 K/uL (0.1-1.3); Absolute Neutrophil 6.6 K/uL (1.8-8.0); Basophils % 0.5 % (0-1.3); Eosinophils % 3.3 % (0-4.4); Hematocrit 36.3 % (39.6-49.0); Lymphocytes % 17.8 % (15.3-44.8); MCH 25.3 pg (27.0-35.0); MCV 81.2 fL (80-100); MPV 8.3 fL (7.6-11.3); Monocytes % 7.7 % (3.3-12.3); RBC Red Blood Cell Count 4.46 M/uL (4.33-5.43)
[2018-03-11 13:32] LABS: Protime INR 1.28
[2018-03-11 14:01] LABS: ALT/SGPT 11 U/L (12-78); AST/SGOT 24 U/L (15-37); Albumin 2.9 g/dL (3.4-5.0); Alkaline Phosphatase 202 U/L (45-117); BUN Blood Urea Nitrogen 8 mg/dL (7-18); Bicarbonate 32 mmol/L (21-32); Bilirubin Direct 0.4 mg/dL (0-0.2); Bilirubin Total 0.9 mg/dL (0.2-1.0); Glucose Level 97 mg/dL (74-106); Lipase 84 U/L (73-393); Protein, Total 7.4 g/dL (6.4-8.2); Sodium Level 136 mmol/L (136-145)
[2018-03-11 14:02] LABS: Potassium 2.4 mmol/L (3.5-5.1)
[2018-03-11] MEDS ORDERED: NA CHLORIDE 0.9% 500 ML ONE (14:24)
[2018-03-11] MEDS ORDERED: POTASSIUM CL SA 10 MEQ TAB PO ONE (14:24)
[2018-03-11] MEDS ORDERED: KCL 20 MEQ/100 mL IVPB 20 MEQ/100 ML BAG IV ONE (14:25)
--- NOTE | 2018-03-11 15:38 | RAD REPORT ---
EXAM DESCRIPTION: CT - Abdomen Pelvis W Contrast - 03/11/2018 3:07 pm CLINICAL HISTORY: Colon cancer, rectal bleeding, history of colon stenting COMPARISON: October 2017 TECHNIQUE: Biphasic, helical CT imaging of the abdomen and pelvis was performed following 100 ml non -ionic IV contrast. Oral contrast was given. All CT scans are performed using dose optimization technique as appropriate and may include automated exposure control or mA/KV adjustment according to patient size. FINDINGS: No suspicious findings in the lung bases. Liver is grossly abnormal. Multiple large metastatic lesions are present throughout the liver parench yma. The exams are not exact matches in protocol; however, liver lesions do appear to have progressed since October. No splenomegaly or focal splenic finding. No acute pancreatic process. Numerous punctate gallstones f ill the gallbladder. No biliary tree dilatation. Symmetric renal function is seen with no hydronephrosis or suspicious renal mass. No acute renal pare nchymal process. No urinary bladder abnormality seen. No gastric dilatation or gastric wall thickening. No acute small bowel finding. There is a large amou nt of stool distending the colon from cecum through mid sigmoid colon. Long segment stenting is prese nt in the distal sigmoid and rectum. Large irregular circumferential mass involves a long segment of the rectosigmoid colon. There are numerous perirectal abnormal lymph nodes. No free air, free fluid or inflammatory stranding. No new hernia. No omental thickening. No adrenal abnormality. No suspicious bony findings. IMPRESSION: Large irregular and nodular circumferential mass involving the distal sigmoid colon and proximal 2/3 of the rectum. There is metallic stent in place spanning the involved portion of colon. Numerous perirectal abnormal lymph nodes progressive from the October study. Large amount of stool is present distending the entirety of the colon from cecum to mid sigmoid colon where it abuts the stent. Numerous metastatic lesions in the liver progressive from the October study.
--- NOTE | 2018-03-11 16:03 | ER ---
Nurse's Notes [facility] Name: Bob Armendariz Age: 57 yrs Sex: Male : 1960 Arrival Date: 03/11/2018 Time: 11:17 Bed 14 Private MD: Out, [facility] Diagnosis: Colon Cancer;Anemia Presentation: 03/11 11:28 Presenting complaint: Patient states: He has stage 4 colon cancer. He has 2 stents in aj1 his colon, he has had blood in his stool since October but the bleeding heavier the last few days. Denies dizziness, chest pain, shortness of breath. Transition of care: patient was not received from another setting of care. Onset of symptoms was October 2017. Risk Assessment: Do you want to hurt yourself or someone else? Patient reports no desire to harm self or others. Initial Sepsis Screen: Does the patient meet any 2 criteria? No. Patient's initial sepsis screen is negative. Does the patient have a suspected source of infection? No. Patient's initial sepsis screen is negative. Care prior to arrival: None. 11:28 Method [facility] Ar[facility] 11:28 Acuity: SUSANNE 3 aj1 Triage Assessment: 11:33 General: Appears in no apparent distress. comfortable, Behavior is calm, cooperative, aj1 appropriate for age. Pain: Denies pain. Neuro: Level of Consciousness is awake, alert, obeys commands. Cardiovascular: Patient's skin is warm and dry. Respiratory: Airway is patent Respiratory effort is even, unlabored, Respiratory pattern is regular, symmetrical. Historical: - Allergies: 11:33 No Known Allergies; aj1 - Home Meds: 11:33 Metoprolol Tartrate Oral [Active]; aj1 - PMHx: 11:33 Hypertension; stage 4 colon cancer; aj1 - PSHx: 11:50 None; rb1 - Immunization history:: Flu vaccine is up to date. - Social history:: Smoking status: Patient uses tobacco products, smokes one-half pack cigarettes per day. - Ebola Screening: : Patient denies travel to an Ebola-affected area in the 21 days before illness onset. - Family history:: not pertinent. - Hospitalizations: : No recent hospitalization is reported. Screenin:50 Abuse screen: Denies threats or abuse. Nutritional screening: decrease appetite. rb1 Tuberculosis screening: No symptoms or risk factors identified. Fall Risk None identified. Assessment: 11:50 General: Appears in no apparent distress. comfortable, slender, Behavior is calm, rb1 cooperative. Pain: Denies pain. Neuro: Level of Consciousness is awake, alert, obeys commands, Oriented to person, place, time, situation. Cardiovascular: Capillary refill < 3 seconds is brisk in bilateral fingers. Respiratory: Airway is patent Respiratory effort is even, unlabored, Respiratory pattern is regular, symmetrical. GI: Reports bloody stool. : No signs and/or symptoms were reported regarding the genitourinary system. Derm: Skin is dry, Skin is normal, Skin temperature is warm. 12:45 Reassessment: Patient appears in no apparent distress at this time. No changes from rb1 previously documented assessment. 13:39 Reassessment: Patient appears in no apparent distress at this time. Patient and/or rb1 family updated on plan of care and expected duration. Pain level reassessed. Patient is alert, oriented x 3, equal unlabored respirations, skin warm/dry/pink. Family at bedside. 14:30 Reassessment: Patient appears in no apparent distress at this time. No changes from rb1 previously documented assessment. 15:30 Reassessment: Patient appears in no apparent distress at this time. Patient and/or rb1 family updated on plan of care and expected duration. Pain level reassessed. Patient is alert, oriented x 3, equal unlabored respirations, skin warm/dry/pink. Family at bedside. 16:07 Reassessment: Discharge pending due to Magnesium infusing. rb1 16:43 Reassessment: Patient appears in no apparent distress at this time. Patient and/or rb1 family updated on plan of care and expected duration. Pain level reassessed. Patient is alert, oriented x 3, equal unlabored respirations, skin warm/dry/pink. Vital Signs: 11:33 BP 157 / 102; Pulse 73; Resp 18; Temp 98.0; Pulse Ox 99% on R/A; Weight 81.19 kg (R); aj1 Height 6 ft. 1 in. (185.42 cm) (R); Pain 0/10; 12:30 BP 140 / 98; Pulse 68; Resp 17; Pulse Ox 98% on R/A; rb1 13:30 BP 123 / 91; Pulse 74; Resp 19; Pulse Ox 99% on R/A; rb1 14:30 BP 156 / 89; Pulse 76; Resp 17; Pulse Ox 99% on R/A; rb1 15:30 BP 164 / 99; Pulse 70; Resp 19; Pulse Ox 100% on R/A; rb1 16:29 BP 158 / 90; Pulse 72; Resp 18; Pulse Ox 100% on R/A; rb1 11:33 Body Mass Index 23.62 (81.19 kg, 185.42 cm) aj1 ED Course: 11:17 Patient arrived in ED. sb2 11:18 Out, of Town is Private Physician. sb2 11:32 Triage completed. aj1 11:33 Arm band placed on. aj1 11:47 Silverio Bee MD is Attending Physician. rn 11:50 Patient has correct armband on for positive identification. Bed in low position. Call rb1 light in reach. Side rails up X 1. Pulse ox on. NIBP on. 12:02 Alexia De Jesus, RN is Primary Nurse. rb1 13:10 Initial lab(s) drawn, by nm, sent to lab. Inserted saline lock: 20 gauge in left em forearm, using aseptic technique. Blood collected. 15:08 CT Abd/Pelvis - W/Contrast In Process Unspecified. EDMS 16:43 No provider procedures requiring assistance completed. IV discontinued, intact, rb1 bleeding controlled, No redness/swelling at site. Pressure dressing applied. Administered Medications: 14:20 Drug: Potassium Chloride 40 mEq Route: PO; rb1 15:10 Follow up: Response: No adverse reaction rb1 14:36 Drug: Potassium Chloride 20 mEq Route: IV; Rate: calculated rate; Site: left forearm; rb1 16:43 Follow up: Response: No adverse reaction; IV Status: Completed infusion rb1 Outcome: 16:03 Discharge ordered by . rn 16:43 Discharged to home ambulatory, with family. rb1 16:43 Condition: stable 16:43 Discharge instructions given to patient, Instructed on discharge instructions, follow rb1 up and referral plans. Demonstrated understanding of instructions, follow-up care, Prescriptions given X none 16:45 Patient left the ED. rb1 16:47 Patient left the ED. Signatures: Dispatcher [employer] EDOR Fabiola Omer RN RN aj1 Enmanuel Leon, EAR PULL MACHINE OPERATOR EAR PULL MACHINE OPERATOR em Silverio Bee MD MD rn Barber, Rebecca, RN RN rb1 Rider, Dulce Maria, RN RN hb Billeau, Shahida sb2
--- NOTE | 2018-03-11 16:04 | EDPHYS ---
Physician Documentation [facility] Name: Bob Armendariz Age: 57 yrs Sex: Male : 1960 Arrival Date: 03/11/2018 Time: 11:17 Bed 14 Private MD: Out, [facility], [facility] ED Physician Silverio Bee HPI: 03/11 12:29 This 57 yrs old Black Male presents to ER via Ambulatory with complaints of Rectal rn Bleeding - Colon Cancer Pt. 12:29 The patient presents to the emergency department with bleeding from the rectum/anus. rn Onset: The symptoms/episode began/occurred 4 month(s) ago. Modifying factors: The symptoms are alleviated by nothing, The symptoms are aggravated by bowel movement. Associate signs and symptoms: Pertinent positives: lower GI bleeding, Pertinent negatives: fever, vomiting. The patient has experienced similar episodes in the past. Reports diagnosed with colon cancer in October this year, had 2 colon stents in november, told to f/u with colorectal surgeon and local doctors for chemo, hasn't started yet, presents for worsening bleeding over last few days. Thinks had syncopal episode a couple of days ago, today without dizziness/lightheadness/chest pain/sob/weakness. . Historical: - Allergies: 11:33 No Known Allergies; aj1 - Home Meds: 11:33 Metoprolol Tartrate Oral [Active]; aj1 - PMHx: 11:33 Hypertension; stage 4 colon cancer; aj1 - PSHx: 11:50 None; rb1 - Immunization history:: Flu vaccine is up to date. - Social history:: Smoking status: Patient uses tobacco products, smokes one-half pack cigarettes per day. - Ebola Screening: : Patient denies travel to an Ebola-affected area in the 21 days before illness onset. - Family history:: not pertinent. - Hospitalizations: : No recent hospitalization is reported. ROS: 12:29 Constitutional: Negative for fever, chills, and weight loss, Eyes: Negative for injury, rn pain, redness, and discharge, Cardiovascular: Negative for chest pain, palpitations, and edema, Respiratory: Negative for shortness of breath, cough, wheezing, and pleuritic chest pain, Abdomen/GI: Negative for abdominal pain, nausea, vomiting, diarrhea, and constipation, MS/Extremity: Negative for injury and deformity, Skin: Negative for injury, rash, and discoloration, Neuro: Negative for headache, weakness, numbness, tingling, and seizure. Exam: 12:29 Constitutional: This is a well developed, well nourished patient who is awake, alert, rn and in no acute distress. Head/Face: Normocephalic, atraumatic. Eyes: slightly pale conjunctivae Cardiovascular: Regular rate and rhythm with a normal S1 and S2. No gallops, murmurs, or rubs. Normal PMI, no JVD. No pulse deficits. Respiratory: Lungs have equal breath sounds bilaterally, clear to auscultation and percussion. No rales, rhonchi or wheezes noted. No increased work of breathing, no retractions or nasal flaring. Abdomen/GI: Soft, non-tender. No distension or tympany. No guarding or rebound. No evidence of tenderness throughout. MS/ Extremity: Pulses equal, no cyanosis. Neurovascular intact. Full, normal range of motion. Equal circumference. Neuro: Awake and alert, GCS 15, oriented to person, place, time, and situation. Cranial nerves II-XII grossly intact. Motor strength 5/5 in all extremities. Sensory grossly intact. Cerebellar exam normal. Normal gait. Vital Signs: 11:33 BP 157 / 102; Pulse 73; Resp 18; Temp 98.0; Pulse Ox 99% on R/A; Weight 81.19 kg (R); aj1 Height 6 ft. 1 in. (185.42 cm) (R); Pain 0/10; 12:30 BP 140 / 98; Pulse 68; Resp 17; Pulse Ox 98% on R/A; rb1 13:30 BP 123 / 91; Pulse 74; Resp 19; Pulse Ox 99% on R/A; rb1 14:30 BP 156 / 89; Pulse 76; Resp 17; Pulse Ox 99% on R/A; rb1 15:30 BP 164 / 99; Pulse 70; Resp 19; Pulse Ox 100% on R/A; rb1 16:29 BP 158 / 90; Pulse 72; Resp 18; Pulse Ox 100% on R/A; rb1 11:33 Body Mass Index 23.62 (81.19 kg, 185.42 cm) aj MDM: 11:47 Patient medically screened. rn 16:01 Differential diagnosis: cancer, infection. Data reviewed: vital signs, nurses notes, yarn rewinder test result(s), radiologic studies, CT scan, and as a result, I will discharge patient. Counseling: I had a detailed discussion with the patient and/or guardian regarding: the historical points, exam findings, and any diagnostic results supporting the discharge/admit diagnosis, lab results, radiology results, the need for outpatient follow up, to return to the emergency department if symptoms worsen or persist or if there are any questions or concerns that arise at home. Special discussion: I discussed with the patient/guardian in detail that at this point there is no indication for admission to the hospital. It is understood, however, that if the symptoms persist or worsen the patient needs to return immediately for re-evaluation. ED course: Pt feels ok, asymptomatic at this time, H/H looks good, hemoglobin is 11, stable CT abd, stent is patent, has f/u with MD sargent for scheduled chemo, return precautions given and understood.. 03/11 12:15 Order name: Basic Metabolic Panel; Complete Time: 14:11 rn 03/11 12:15 Order name: CBC with Diff; Complete Time: 13:36 rn 03/11 12:15 Order name: Creatinine for Radiology; Complete Time: 13:36 rn 03/11 12:15 Order name: Hepatic Function; Complete Time: 14:11 rn 03/11 12:15 Order name: Lipase; Complete Time: 14:11 rn 03/11 12:15 Order name: Type And Screen; Complete Time: 14:11 rn 03/11 12:15 Order name: IV Saline Lock; Complete Time: 13:13 rn 03/11 12:15 Order name: Labs collected and sent; Complete Time: 13:13 rn 03/11 12:15 Order name: CT Abd/Pelvis - W/Contrast; Complete Time: 15:40 rn 03/11 12:15 Order name: PT-INR; Complete Time: 13:36 rn 03/11 12:15 Order name: Ptt, Activated; Complete Time: 13:36 rn Administered Medications: 14:20 Drug: Potassium Chloride 40 mEq Route: PO; rb1 15:10 Follow up: Response: No adverse reaction rb1 14:36 Drug: Potassium Chloride 20 mEq Route: IV; Rate: calculated rate; Site: left forearm; rb1 16:43 Follow up: Response: No adverse reaction; IV Status: Completed infusion rb1 Disposition: 03/11/18 16:03 Discharged to Home. Impression: Colon Cancer, Anemia. - Condition is Stable. - Discharge Instructions: Gastrointestinal Bleeding. - Medication Reconciliation Form, Thank You Letter, Antibiotic Education, Prescription Opioid Use form. - Follow up: Private Physician; When: As needed; Reason: Recheck today's complaints, Re-evaluation by your physician. - Problem is new. - Symptoms have improved. Signatures: Dispatcher [employer] EDIL Fabiola Omer RN RN aj1 Silverio Bee MD MD rn Barber, Rebecca, RN RN rb1 Dulce Maria Rider RN RN hb Corrections: (The following items were deleted from the chart) 16:45 16:03 03/11/2018 16:03 Discharged to Home. Impression: Colon Cancer; Anemia. Condition rb1 is Stable. Forms are Medication Reconciliation Form, Thank You Letter, Antibiotic Education, Prescription Opioid Use. Follow up: Private Physician; When: As needed; Reason: Recheck today's complaints, Re-evaluation by your physician. Problem is new. Symptoms have improved. rn 16:47 16:45 03/11/2018 16:03 Discharged to Home. Impression: Colon Cancer; Anemia. Condition hb is Stable. Discharge Instructions: Gastrointestinal Bleeding. Forms are Medication Reconciliation Form, Thank You Letter, Antibiotic Education, Prescription Opioid Use. Follow up: Private Physician; When: As needed; Reason: Recheck today's complaints, Re-evaluation by your physician. Problem is new. Symptoms have improved. rb1
[2018-03-11 17:24] VITALS: TEMP 98
[2018-03-11 17:26] VITALS: BP 164/99; O2SAT 100
== END 2018-03-11 16:47 | disposition home or self-care (01) ==
LOC: ER 11:15
DX: D64.9 Anemia, unspecified (principal); C26.0 Malignant neoplasm of intestinal tract, part unspecified; I10 Essential (primary) hypertension; F17.210 Nicotine dependence, cigarettes, uncomplicated
CPT/HCPCS: 36415; 74177; 80048; 80076; 83690; 85025; 85610; 85730; 86850; 86900; 86901; 96365; 96366; 99284; Q9967